=== PATIENT | female | born 2000 | race Hispanic/Latino ===

== ENCOUNTER 2019-12-10 19:50 | Emergency (ER) | payer OTHER ==
[~2019-12-10] VITALS: Ht 162.6 cm; Wt 106.1 kg
[2019-12-10] MEDS ORDERED: PREN29TA4 PO (20:00)
[2019-12-10] MEDS ORDERED: ONDANSETRON 4MG/2ML VIAL IV ONE (20:45)
[2019-12-10] MEDS ORDERED: NS 1,000 ML IV ONE (20:45)
[2019-12-10] MEDS ORDERED: GI COCKTAIL 50ML BTL(HYOSCYAMINE/MAALOX/LIDOCAINE VISCOUS)(1:3:1) PO ONE (20:45)
[2019-12-10 20:55] LABS: BASO % 0.2 % (0.0-1.0); EOS # 0.1 10^3/uL (0.0-0.5); EOS % 0.7 % (0.0-3.0); HEMATOCRIT 40.3 % (36.0-47.0); HEMOGLOBIN 12.9 g/dl (12.0-15.5); LYMPH # 1.8 10^3/uL (1.5-5.0); LYMPH % 15.1 % (24.0-44.0); MEAN CORPUSCULAR HEMOGLOBIN 25.9 pg (27.0-33.0); MEAN CORPUSCULAR VOLUME 80.9 fl (80.0-96.0); MONO # 0.7 10^3/uL (0.0-0.8); MONO % 5.4 % (0.0-5.0); NEUTROPHILS # 9.4 10^3/uL (1.5-8.5); NEUTROPHILS % 78.1 % (36.0-66.0); PLATELET COUNT, AUTOMATED 388 10^3/uL (150-450); RED BLOOD COUNT 4.98 10^6/uL (4.00-5.40); WHITE BLOOD COUNT 12.1 10^3/uL (4.0-10.0)
[2019-12-10 22:01] LABS: ALBUMIN 3.3 GM/DL (3.2-5.2); ALT/SGPT 42 U/L (12-78); BILIRUBIN,DIRECT < 0.1 MG/DL (0.0-0.2); BILIRUBIN,TOTAL 0.3 MG/DL (0.2-1.0); BLOOD UREA NITROGEN 8 MG/DL (7-18); CALCIUM LEVEL 9.1 MG/DL (8.5-10.1); CARBON DIOXIDE LEVEL 25 MEQ/L (21-32); CHLORIDE LEVEL 106 MEQ/L (98-107); CREATININE FOR GFR 0.51 MG/DL (0.55-1.30); GLUCOSE, FASTING 88 MG/DL (70-100); HCG, SERUM QUANTITATIVE 62887 MIU/ML; LIPASE 66 U/L (73-393); POTASSIUM SERUM 3.8 MEQ/L (3.5-5.1); SODIUM LEVEL 138 MEQ/L (136-145); TOTAL PROTEIN 7.1 GM/DL (6.4-8.2)
[2019-12-10] MEDS ORDERED: ONDA4TAB6 PO (22:36)
[2019-12-10 22:41] VITALS: BP 123/60
== END 2019-12-10 22:46 | disposition home or self-care (01) ==
LOC: M ED 19:50
DX: O21.9 Vomiting of pregnancy, unspecified (principal); Z3A.08 8 weeks gestation of pregnancy; Z79.899 Other long term (current) drug therapy
CPT/HCPCS: 80048; 80076; 83690; 84702; 85025; 96361; 96374; 99284; J2405

== ENCOUNTER 2020-06-11 23:56 | Outpatient (CLI) | payer OTHER ==
[~2020-06-11] VITALS: Ht 160 cm; Wt 112.0 kg
[~2020-06-11 23:56] MED LIST: ONDA4TAB6 PO; PREN29TA4 PO
[2020-06-12 00:18] VITALS: BP 107/63
[2020-06-12] MEDS ORDERED: FERR325T3 PO (00:27)
[2020-06-12 01:46] LABS: AMORPHOUS SEDIMENT SMALL (NEGATIVE); APPEARANCE, URINE CLOUDY (CLEAR); BACTERIA, URINE AUTO 1+ (NEGATIVE); BILIRUBIN, URINE AUTO NEGATIVE (NEGATIVE); BLOOD, URINE BLOOD NEGATIVE (NEGATIVE); COLOR, URINE AMBER (YELLOW); GLUCOSE, URINE (UA) AUTO NEGATIVE (NEGATIVE); KETONE, URINE AUTO NEGATIVE (NEGATIVE); LEUKOCYTE ESTERASE, URINE AUTO TRACE (NEGATIVE); MUCUS, URINE SMALL (NEGATIVE); NITRITE, URINE AUTO NEGATIVE (NEGATIVE); PROTEIN, URINE AUTO 1+ mg/dL (NEGATIVE); RBC, URINE AUTO 1 /HPF (0-3); SPECIFIC GRAVITY URINE AUTO 1.025 (1.002-1.035); SQUAMOUS EPITHELIAL CELL UR AU 2 /HPF (0-6); UROBILINOGEN, URINE AUTO 0.2 mg/dL (0.0-2.0); WBC, URINE AUTO 2 /HPF (0-3)
--- NOTE | 2020-06-12 02:39 | REPVR ---
PROCEDURE INFORMATION: Exam: US Doppler Velocimetry of the Umbilical Artery Exam date and time: 06/12/2020 2:00 AM Age: 19 years old Clinical indication: Pain indication: Lower abd pain; ; Additional info: Lower abd pain, bpp at 35.3 wks TECHNIQUE: Imaging protocol: US Doppler velocimetry of the umbilical artery with Doppler color and waveform analysis. COMPARISON: No relevant prior studies available. FINDINGS: Umbilical cord and insertion: There are 2 umbilical arteries and 1 umbilical vein. Umbilical artery Doppler: There are 2 umbilical arteries, which are patent. RI = 0.46, which is within normal limits. There is normal continuous forward flow in the umbilical artery during diastole and no absent or reversed end-diastolic flow is noted. Umbilical artery peak systolic velocity: 32.4 cm/s Umbilical artery systolic to diastolic ratio: Systolic to diastolic ratio is within normal limits for age and measures 1.85. IMPRESSION: Unremarkable umbilical Doppler for age. PROCEDURE INFORMATION: Exam: US Biophysical Profile Without Non-Stress Test Exam date and time: 06/12/2020 2:00 AM Age: 19 years old Clinical indication: Pain indication: Lower abd pain; ; Additional info: Lower abd pain, bpp at 35.3 wks TECHNIQUE: Imaging protocol: US biophysical profile without non-stress testing. COMPARISON: No relevant prior studies available. FINDINGS: Gestation: There is a single intrauterine . heart rate: 132 bpm Presentation: Cephalic. Placenta: Anterior. Grade 3. No placenta previa or placental abruption is visualized. Amniotic fluid index: 8.6 cm BIOPHYSICAL PROFILE: Breathin/2 Gross body movements: 2/2 tone: 2/2 Qualitative amniotic fluid: 2/2 Biophysical Profile Score: 8/8 MATERNAL ANATOMY: Cervix: The cervix is closed and measures 3.8 cm in length. No funneling of the cervix is noted. IMPRESSION: Biophysical profile score is 8 out of 8. Electronically signed by: Hayder Jerez On 06/12/2020 02:38:20 AM
[2020-06-12 03:09] LABS: AMPHETAMINES URINE REFLEX NEGATIVE (NEGATIVE); BARBITURATES URINE REFLEX NEGATIVE (NEGATIVE); BENZODIAZEPINES URINE REFLEX NEGATIVE (NEGATIVE); CANNABINOIDS URINE REFLEX NEGATIVE (NEGATIVE); COCAINE METABOLITE URINE REFLE NEGATIVE (NEGATIVE); METHADONE URINE REFLEX NEGATIVE (NEGATIVE); OPIATES URINE REFLEX NEGATIVE (NEGATIVE); PHENCYCLIDINE URINE REFLEX NEGATIVE (NEGATIVE)
[2020-06-12 04:00] VITALS: BP 121/61
--- NOTE | 2020-06-12 04:51 | IPNPDOC ---
Text Note Date of Service The patient was seen on 06/12/20. NOTE Item Value Date Time Urine Opiates Screen NEGATIVE 06/12/20117 Urine Methadone Screen NEGATIVE 06/12/20117 Urine Barbiturates Screen NEGATIVE 06/12/20117 Urine Phencyclidine Screen NEGATIVE 06/12/20117 Urine Amphetamines Screen NEGATIVE 06/12/20117 Urine Benzodiazepines Screen NEGATIVE 06/12/20117 Urine Cocaine Metabolite Screen NEGATIVE 06/12/20117 Urine Cannabinoids Screen NEGATIVE 06/12/20117 Item Value Date Time Urine Color AMELIE 06/12/20117 Urine pH 7.0 UNITS 06/12/20117 Urine Appearance CLOUDY H 06/12/20117 Urine Specific [place] 1.025 06/12/20117 Urine Glucose (Auto)(UA) NEGATIVE mg/dL 06/12/20117 Urine Protein 1+ mg/dL H 06/12/20117 Urine Ketones (Auto) NEGATIVE mg/dL 06/12/20117 Urine Blood NEGATIVE 06/12/20117 Urine Nitrite NEGATIVE 06/12/20117 Urine Bilirubin NEGATIVE 06/12/20117 Urine Urobilinogen 0.2 mg/dL 06/12/20117 Urine Leukocyte Esterase (Auto) TRACE H 06/12/20117 Urine WBC (Auto) 2 /HPF 06/12/20117 Urine RBC (Auto) 1 /HPF 06/12/20117 Urine Hyaline Casts (Auto) 0 /LPF 06/12/20117 Urine Bacteria (Auto) 1+ H 06/12/20117 Urine Squamous Epithelial Cells 2 /HPF 06/12/20117 Urine Amorphous Sediment (Auto) SMALL H 06/12/20117 Urine Mucus (Auto) SMALL 06/12/208 06/12/2020 0436 am 19 yo g1 Po LMP 10/08/19 EDC 07/14/20 at 35.4 weeks history lower abdominal pain after eating something not agreeing with her. RISK FACTORS GESTATIONAL ANEMIA VELAMENTOUS CORD GBS POSITIVE BMI 39.2 CT 2018 ELÍAS NEGATIVE PATIENT IN DISTRESS UNABLE TO LIE DOWN . CATEGORY 1 STRIP NO CONTRACTIONS MODERATE VARIABILITY NO DECELERATIONS . URINE 1025 PH 8 TRACE PROTEIN +1 BACTERIA TOX SCREEN NEGATIVE . US BPP 8/8 CERVIX CLOSED VERNON LOW NORMAL 8.5 CM PLAN DISCHARGE WITH PRECAUTIONS APPOINTMENT AT [facility] OB FRIDAY PROBABLY REPEAT VERNON 1 WEEK PLACENTA GRADE 3 .DISCHARGED UNDELIVERED [facility] NAME: Irlanda Stark DATE OF : 2000 BUSINESS NUMBER: [id number] AGE: 19 SEX: F REPORT #: [id number] ROOM: LDO TECHNOLOGIST: ZULEYMA DOCTOR: Chico Selby MD Ordered for Date&Time: 06/12/20139 cc: [~ rep ct ivnm] Service Date&Time: 06/12/20199 This report is in Signed status. Interpretation performed by [facility]. Thank you for having your radiology procedures performed at [facility] RADIOLOGY REPORT Date&Time printed: [~ rep prt dt last] [~ rep prt tm last] Page 3 of 3 [place] [id number] RADIOLOGY REPORT This report is in Signed status. Interpretation performed by [facility]. Thank you for having your radiology procedures performed at [facility] RADIOLOGY REPORT Date&Time printed: [~ rep prt dt last] [~ rep prt tm last] Page 1 of 3 NAME: Irlanda Stark DATE OF : 2000 BUSINESS NUMBER: [id number] AGE: 19 SEX: F REPORT #: [id number] [facility] TECHNOLOGIST: ZULEYMA DOCTOR: Chico Selby MD Ordered for Date&Time: 06/12/20139 cc: [~ rep ct ivnm] Service Date&Time: 06/12/20199 EXAMINATION REQUESTED: BPP W/O NON STRESS TEST REASON FOR PATIENT VISIT: CONTRACTIONS REASON FOR EXAMINATION: LOWER ABD PAIN,BPP AT 35.3 WKS PROCEDURE INFORMATION: Exam: US Doppler Velocimetry of the Umbilical Artery Exam date and time: 06/12/2020 2:00 AM Age: 19 years old Clinical indication: Pain indication: Lower abd pain; ; Additional info: Lower abd pain, bpp at 35.3 wks TECHNIQUE: Imaging protocol: US Doppler velocimetry of the umbilical artery with Doppler color and waveform analysis. COMPARISON: No relevant prior studies available. FINDINGS: Umbilical cord and insertion: There are 2 umbilical arteries and 1 umbilical vein. Umbilical artery Doppler: There are 2 umbilical arteries, which are patent. RI = 0.46, which is within normal limits. There is normal continuous forward flow in the umbilical artery during diastole and no absent or reversed end-diastolic flow is noted. Umbilical artery peak systolic velocity: 32.4 cm/s Umbilical artery systolic to diastolic ratio: Systolic to diastolic ratio is within normal limits for age and measures 1.85. IMPRESSION: Unremarkable umbilical Doppler for age. PROCEDURE INFORMATION: Exam: US Biophysical Profile Without Non-Stress Test Exam date and time: 06/12/2020 2:00 AM Age: 19 years old Clinical indication: Pain indication: Lower abd pain; ; Additional info: Lower abd pain, bpp at 35.3 wks TECHNIQUE: Imaging protocol: US biophysical profile without non-stress testing. COMPARISON: No relevant prior studies available. FINDINGS: Gestation: There is a single intrauterine . heart rate: 132 bpm Presentation: Cephalic. Placenta: Anterior. Grade 3. No placenta previa or placental abruption is visualized. Amniotic fluid index: 8.6 cm BIOPHYSICAL PROFILE: Breathin/2 Gross body movements: 2/2 tone: 2/2 Qualitative amniotic fluid: 2/2 Biophysical Profile Score: 8/8 MATERNAL ANATOMY: Cervix: The cervix is closed and measures 3.8 cm in length. No funneling of the cervix is noted. IMPRESSION: Biophysical profile score is 8 out of 8. Electronically signed by: Hayder Jerez On 06/12/2020 02:38:20 AM DD: HAYDER JEREZ MD 06/12/200 DT: DAVID 06/12/20237 DS: BENITO 06/12/20237 [~ rep ct labl] VS,Fishbone, I+O VS, Fishbone, I+O Vital Signs Date Time Temp Pulse Resp B/P (MAP) Pulse Ox O2 Delivery O2 Flow Rate FiO2 06/12/20 04:00 97.8 89 18 121/61 (81) Chico Selby MD Jun 12, 2020 04:45
== END 2020-06-12 04:50 | disposition home or self-care (01) ==
LOC: M LDO 23:56
PROVIDERS: ATTEND Obstetrics & Gynecology
DX: O26.893 Other specified pregnancy related conditions, third trimester (principal); R10.9 Unspecified abdominal pain; Z3A.35 35 weeks gestation of pregnancy
CPT/HCPCS: 59025; 76815; 76819; 76820; 80307; 81001; 87081; G0378; G0463

== ENCOUNTER 2020-06-30 09:45 | Inpatient (IN) | payer OTHER ==
[~2020-06-30] VITALS: Ht 162.6 cm; Wt 113.0 kg
[2020-06-30] VITALS (23 sets, daily range): BP systolic 96–143; BP diastolic 51–103
[~2020-06-30 09:45] MED LIST changes: +FERR325T3 PO
[2020-06-30] MEDS ORDERED: OXYTOCIN DRIP 30 UNITS in IV 1 EA IV PRN ×6 (09:55)
[2020-06-30] MEDS ORDERED: TRANEXAMIC ACID INJection 1,000 MG in NS 100 ML IV PRN (09:55)
[2020-06-30] MEDS ORDERED: METHYLERGONOVINE MALEATE 0.2 MG/ML VIAL (J2210) IM PRN (09:55)
[2020-06-30] MEDS ORDERED: LIDOCAINE 1% MDV 20ML VIAL INFIL PRN (09:55)
[2020-06-30] MEDS ORDERED: OXYTOCIN INJ 10 UNITS/ML VIAL (J2590) IV PRN (09:55)
[2020-06-30] MEDS ORDERED: PENICILLIN G POTASSIUM IV 5 MU in D5W MINI-BAG PLUS 100 ML IV STA (09:55)
[2020-06-30] MEDS ORDERED: miSOPROStol 50MCG 1/2 TABLET PO ONE (09:55)
[2020-06-30] MEDS ORDERED: CARBOPROST TROMETHAMINE 250 MCG/ML AMP IM PRN (09:55)
[2020-06-30] MEDS ORDERED: LACTATED RINGER'S 1000 ML IV STA (09:55)
[2020-06-30 10:46] LABS: HEMATOCRIT 37.2 % (36.0-47.0); HEMOGLOBIN 11.9 g/dl (12.0-15.5); MEAN CORPUSCULAR HEMOGLOBIN 26.2 pg (27.0-33.0); MEAN CORPUSCULAR VOLUME 81.8 fl (80.0-96.0); PLATELET COUNT, AUTOMATED 307 10^3/uL (150-450); RED BLOOD COUNT 4.55 10^6/uL (4.00-5.40); WHITE BLOOD COUNT 11.6 10^3/uL (4.0-10.0)
--- NOTE | 2020-06-30 11:18 | HPEPDOC ---
Obstetrical History & Physical General Date of Admission Jun 30, 2020 at 09:45 History of Present Illness 19 yo G1 @ 38+0 by LMP C/W [id number] US who is admitted for induction of labor for suspected IHCP and cat II tracing with occasional variable decels noted in clinic. she reports hand and feet itching worse at night. she denies any contractions or vaginal bleeding. she report regular movements. she has no other concerns. Information Provided By: Patient Care Care: Good Care Dating Final EDC: Jul 14, 2020 Final EDC by: LMP, 1st trimester (US) LMP: Oct 08, 2019 1st Trimester Date: Dec 20, 2019 Weeks + Days: 10 (10+4) Estimated Date of Confinement: Jul 14, 2020 EGA at Admission: 38 Antepartum Course Diagnos(e)s 1. Obesity 2. Varicella non immune- recommend vaccine 3. GBS positive 4. Gestational Anemia 5. Velamentous cord insertion 6. Suspected IHCP- LFTs pending Pre- weight (lbs.): 228 Admission Weight (lbs.): 249 Change in Weight (lbs.): 21 Past Medical History Past Obstetrical History : Past Obstetrical History: [employer] History: No pertinent history Past Medical History Medical History Obesity, Insomnia, hx of THC use- stoped in december 2019 Surgical History: Denies/None Social History Social history hx of THC use, stoped in december 2019. Denies E/T Family situation: Spouse/partner home Psychosocial History: No pertinent psych hx * Smoker: non-smoker Drugs: marijuana Abuse Violence Screening Have you been hit/kicked/slapp: No Have you been sexually assault: No Imunizations Tdap status: current Allergies Coded Allergies: No Known Allergies (Unverified , 06/12/20) Medications Scheduled Ferrous Sulfate (Ferrous Sulfate) 325 Mg Tablet.dr, 1 TAB PO BID Prenat 115/Iron Fum/Folic/Dss ( 19 Tablet) 1 Each Tablet, 1 TAB PO DAILY Physical Examination Physical Examination GENERAL: Alert and oriented times three. BREAST: . ABDOMEN: Gravid and non-tender to touch. FETUS: Is vertex (VTX) by sterile vaginal examination (SVE), EFW 3500g HEART RATE: Regular rate and rhythm. LUNGS: Clear to auscultation (CTA). EXTREMITIES: pedal edema SVE: , DLFB placed with 80/[address] Laboratory Data Urine Culture: No Growth, Other (GBS) Pertinent Laboratoy Data Blood Type: O+ RBC Antibody Screen: Negative HIV: Negative Hepatitis B: Negative Hepatitis C: Unknown Rapid Plasma Reagin: Nonreactive Rubella: Immune Varicella: Nonreactive Chlamydia/Gonorrhea: Negative Group B Streptococcus: Positive Quad Screen Test: Unknown Cystic Fibrosis: Unknown Glucose Tolerance Test: 109 Anatomy Ultrasound Ultrasound Date: Apr 20, 2020 Placenta Location: Anterior Normal Anatomy: Yes Other Ultrasounds Exam: US Doppler Velocimetry of the Umbilical Artery Exam date and time: 06/12/2020 2:00 AM Age: 19 years old Clinical indication: Pain indication: Lower abd pain; ; Additional info: Lower abd pain, bpp at 35.3 wks TECHNIQUE: Imaging protocol: US Doppler velocimetry of the umbilical artery with Doppler color and waveform analysis. COMPARISON: No relevant prior studies available. FINDINGS: Umbilical cord and insertion: There are 2 umbilical arteries and 1 umbilical vein. Umbilical artery Doppler: There are 2 umbilical arteries, which are patent. RI = 0.46, which is within normal limits. There is normal continuous forward flow in the umbilical artery during diastole and no absent or reversed end-diastolic flow is noted. Umbilical artery peak systolic velocity: 32.4 cm/s Umbilical artery systolic to diastolic ratio: Systolic to diastolic ratio is within normal limits for age and measures 1.85. IMPRESSION: Unremarkable umbilical Doppler for age. PROCEDURE INFORMATION: Exam: US Biophysical Profile Without Non-Stress Test Exam date and time: 06/12/2020 2:00 AM Age: 19 years old Clinical indication: Pain indication: Lower abd pain; ; Additional info: Lower abd pain, bpp at 35.3 wks TECHNIQUE: Imaging protocol: US biophysical profile without non-stress testing. COMPARISON: No relevant prior studies available. FINDINGS: Gestation: There is a single intrauterine . heart rate: 132 bpm Presentation: Cephalic. Placenta: Anterior. Grade 3. No placenta previa or placental abruption is visualized. Amniotic fluid index: 8.6 cm BIOPHYSICAL PROFILE: Breathin/2 Gross body movements: 2/2 tone: 2/2 Qualitative amniotic fluid: 2/2 Biophysical Profile Score: 8/8 MATERNAL ANATOMY: Cervix: The cervix is closed and measures 3.8 cm in length. No funneling of the cervix is noted. IMPRESSION: Biophysical profile score is 8 out of 8. Electronically signed by: Hayder Jerez On 06/12/2020 02:38:20 AM Steroid Therapy Steroid Therapy: No Vaginal Examination Dilation: 1cm Effacement: 30% Station: -3 Cervical Consistency: Firm Cervical Position: Middle Presentation: Cephalic presentation Assessment Heart Rate (FHR): 140 Variability: Moderate Accelerations: Positive Decelerations: None Tocometer Contractions: No Multi-drug resistant Organism: No history of MDRO Assessment/Plan Assessment 19 yo G1 @ 38+0 by LMP C/W 10W4D US who is admitted for induction of labor for suspected IHCP and cat II tracing with occasional variable decels noted in clinic. GBS positive, RH positive, Cat I tracing on admission. EFW 3500g. Single elevated BP on admission. 1. Obesity 2. Varicella non immune- recommend vaccine 3. GBS positive 4. Gestational Anemia 5. Velamentous cord insertion 6. Suspected IHCP- LFTs pending Plan Admit and orient. [place] and consent. Diet: regular while on cervical ripening Group B Streptococcus (GBS) positive- start Penicillin treatment Labs and intravenous (IV) per unit protocol. Counseled on Pitocin and induction of labor (IOL). Lactated Ringers (LR): Bolus 1000 mL, then at 125 mL/hr. Anticipate normal spontaneous delivery (). C-S as appropriate. Labor and Delivery Counseling We will deliver your baby through the vagina with possible assistance of forceps or vacuum device if needed for maternal or indications. Forceps and vacuum are devices that can assist with vaginal delivery when normal pushing efforts cannot achieve delivery on their own or when delivery is needed in an emergency for baby's well-being. Medications may be required to induce or augment (help) your labor in order to achieve a vaginal delivery. An episiotomy may be required to help your baby to delivery vaginally. You may also require repair of any lac erations or tears of your vagina or vulva that are caused by delivery. In some cases, emergencies can occur that require an emergency section delivery so quickly that there may not be enough time to stop and complete consent forms for section. Understand that if this occurs, your providers will discuss the need for a section with you before they proceed with surgery. section is the delivery of your baby through an incision in your abdomen. In some situations, section may be safer to mom and baby than continuing labor and is only performed when clinically indicated. Risks of vaginal delivery include but are not limited to: Bleeding, infection, injury to the vagina, pelvic structures, injury to baby, damage to the uterus, reactions to anesthesia, uterine rupture, risk of hysterectomy for life threatening bleeding, or . Medications used to induce or augment labor may increase your risk for infection, uterine tachysystole, uterine rupture, heart rate abnormalities, need for emergency delivery or possible hysterectomy, and hemorrhage. Additional risks for use of forceps and vacuum include: increased risk of perineal and vaginal lacerations, risk of urinary or bowel incontinence, increased risk of injury to baby with bruising, scratches, hematomas on the head, or intracranial bleeding. AJ THOMPSON MD Jun 30, 2020 10:29
[2020-06-30 11:49] LABS: CREATININE FOR GFR 0.34 MG/DL (0.55-1.30)
[2020-06-30 11:50] LABS: ALT/SGPT 19 U/L (12-78); BILIRUBIN,TOTAL 0.4 MG/DL (0.2-1.0); LDH LACTATE DEHYDROGENASE 305 U/L (84-246); URIC ACID 4.6 MG/DL (2.6-6.0)
[2020-06-30] MEDS: LR 1,000 ML IV SCH ×2 (12:45→18:12)
[2020-06-30] MEDS: PENICILLIN G POTASSIUM IV 2.5 MU in IV 1 EA IV SCH ×2 (17:19→21:11)
[2020-06-30] MEDS ORDERED: LR 1,000 ML IV SCH (18:32)
[2020-06-30] MEDS ORDERED: OXYTOCIN DRIP 30 UNITS in IV 1 EA IV SCH (18:35)
--- NOTE | 2020-06-30 18:38 | IPNPDOC ---
Obstetrical Progress Note Date of Service Jun 30, 2020 Subjective Routine assessment. No acute concerns. Objective Vital Signs Date Time Temp Pulse Resp B/P (MAP) Pulse Ox O2 Delivery O2 Flow Rate FiO2 06/30/20 15:55 85 18 134/82 (99) 06/30/20 10:11 98.0 Assessment Heart Rate (FHR): 140 Variability: Moderate Accelerations: Positive Decelerations: Late Heart Rate Tracing: Category II Tocometer Contractions: Yes Frequency: irregular Assessment and Plan Anticipate: Vaginal Delivery Additional Comments Patient's DLFB came out at 1710. Her last dose of cytotec was at 1245. She has overall mostly had a CAT I tracing, but has had two late decels. Her variability has remained moderate, this is overall reassuring. The patient is going to eat dinner and shower then we will start pitocin. She was requesting an epidural, I will check her cervix after she gets the epidural. Plan for AROM when appropriate. KIRSTIN SALDIVAR DO Jun 30, 2020 18:38
[2020-06-30 20:20] LABS: CREATININE,RANDOM URINE 52.1 MG/DL
--- NOTE | 2020-06-30 22:32 | IPNPDOC ---
Obstetrical Progress Note Date of Service Jun 30, 2020 Subjective To room for routine assessment. Patient has no complaints. Objective Vital Signs Date Time Temp Pulse Resp B/P (MAP) Pulse Ox O2 Delivery O2 Flow Rate FiO2 06/30/20 21:50 97 18 125/71 (89) 06/30/20 10:11 98.0 Assessment Heart Rate (FHR): 140 Variability: Moderate Accelerations: Positive Decelerations: None Heart Rate Tracing: Category I Tocometer Contractions: Yes Frequency: regular Sterile Vaginal Examination Dilation: 5 cm Effacement (%): 70% Station: -2 Cervical Consistency: Soft Cervical Position: Anterior Postion/Presentation: Cephalic presentation (by exam) Assessment and Plan Anticipate: Vaginal Delivery Additional Comments To room for routine assessment. CAT I tracing, reactive. She is now meeting criteria for GHTN for intermittent mild range BPs. She denied si/sx of pre-e and her tox labs were normal. SVE was 5/75/-2 and there was a BBOW that spontaneously ruptured upon SVE, clear. Will continue IOL with pit and reassess as clinically indicated. KIRSTIN SALDIVAR DO Jun 30, 2020 22:32
[2020-06-30] MEDS ORDERED: FENTANYL 2MCG/ML ROPIVACAINE 0.2% IN 0.9% NACL 100ML IVBAG As Ordered ONE (22:42)
[2020-07-01] VITALS (30 sets, daily range): BP systolic 96–123; BP diastolic 51–86
[2020-07-01] MEDS ORDERED: ONDANSETRON 4MG/2ML VIAL IV PRN
[2020-07-01] MEDS ORDERED: ePHEDrine SULFATE 25 MG/5 ML(5MG/ML) SYRINGE IV PRN
[2020-07-01] MEDS ORDERED: REFRIGERATOR IV KEYS XX PRN
[2020-07-01] MEDS ORDERED: EPIDURAL/PCA KEYS XX PRN
[2020-07-01] MEDS ORDERED: LACTATED RINGER'S 1000 ML IV PRN
[2020-07-01] MEDS ORDERED: diphenhydrAMINE 50MG/ML VIAL (J1200) IV PRN
[2020-07-01] MEDS ORDERED: EPIDURAL COMMENT XX SCH
[2020-07-01] MEDS ORDERED: NALOXONE INJ 0.4MG/1ML VIAL (J2310 PER 1MG) IV PRN
[2020-07-01] MEDS ORDERED: FENTANYL/ROPIVACAINE/NACL BAG 100 ML EPIDURAL SCH
[2020-07-01] MEDS: LR 1,000 ML IV SCH (00:33)
[2020-07-01] MEDS: PENICILLIN G POTASSIUM IV 2.5 MU in IV 1 EA IV SCH ×2 (01:19→04:30)
--- NOTE | 2020-07-01 04:37 | IPNPDOC ---
Obstetrical Progress Note Date of Service Jul 01, 2020 Subjective To room for assessment of cervical change. Objective Vital Signs Date Time Temp Pulse Resp B/P (MAP) Pulse Ox O2 Delivery O2 Flow Rate FiO2 06/30/20 21:50 97 18 125/71 (89) 06/30/20 10:11 98.0 Assessment Heart Rate (FHR): 130 Variability: Moderate Accelerations: Positive Decelerations: Early, Late, Variable Heart Rate Tracing: Category II Tocometer Contractions: Yes Frequency: regular Sterile Vaginal Examination Dilation: 9 cm Effacement (%): 90% Station: 0 Assessment and Plan Status: Reassuring Additional Comments To room for assessment of report of cervical change by RN. RICK AL/90/0. A thick lip is appreciated on the right side with some swelling appreciated. Attempt made to reduce unsuccessful. The baby has had early decelerations as well as occ asional variable and late decelerations, but there is good return to baseline and moderate variability and accelerations. As patient is progressing well will continue to closely monitor. KIRSTIN SALDIVAR DO Jul 01, 2020 04:37
[2020-07-01] MEDS ORDERED: ceFAZolin 2 GM/D5W 50 ML IV BAG (J0690 PER 500MG) As Ordered ONE (05:56)
[2020-07-01] MEDS ORDERED: ceFAZolin SOD 2 GM in IV 1 EA IV ONE (06:00)
[2020-07-01 06:17] LABS: CORD GAS ABE A -3.9; CORD GAS HCO3 A 23.7 MEQ/L; CORD GAS O2 SAT A 66.1 %; CORD GAS PH A 7.268 UNITS; CORD GAS PO2 A 29.2 mmHg; CORD GAS SBC A 20.5 MEQ/L; CORD GAS TCO2 A 25.3 MEQ/L
[2020-07-01 06:20] LABS: CORD GAS ABE V -1.7; CORD GAS O2 SAT V 62.7 %; CORD GAS PCO2 V 43.7 mmHg; CORD GAS PH V 7.357 UNITS; CORD GAS PO2 V 24.7 mmHg; CORD GAS SBC V 22.2 MEQ/L; CORD GAS TCO2 V 25.3 MEQ/L
--- NOTE | 2020-07-01 06:39 | DNPDOC ---
[facility] Delivery Note Delivery Note DATE OF DELIVERY: 07/01/20 PREDELIVERY DIAGNOSIS: 38+1/7 weeks' gestation and labor, suspected IHCP, GBS positive, obesity, velamentous cord insertion POST DELIVERY DIAGNOSIS: delivered PROCEDURE: Spontaneous vaginal delivery, manual placental extraction, repair of bilateral labial lacerations, repair of first degree midline laceration SASH FINISHER: Dr. Jose Saldivar DO ANESTHESIA: epidural ESTIMATED BLOOD LOSS: 150 mL. FINDINGS: 3100g, Score 8/9, nuchal cord times 0. DELIVERY SUMMARY: Ms. Stark is a 19yo who was induced at 38+0 for suspected ICHP with a CAT II FHR tracing. She was induced with a castellanos balloon and cytotec initially. Pitocin was started and she did require some pitocin decreases for CAT II heart rate. With the aid of Pitocin she progressed to C/C/+3 and with good maternal effort delivered the baby in the INGRID position followed by the corpus without difficulty. The cord clamping was not delayed as initially there was no cry, but good tone. Shortly thereafter the baby had spontaneous cry. Cord gasses and blood were obtained. The placenta was delivered with sonya downward traction but due to the vilamentous cord insertion the cord began to shear and a partial manual extraction was performed. A sweep revealed retained placental membranes and a cody[place]on. 2g of ancef IV were administered prophylactically for the sweep. A transabdominal U/S was performed after and the EMS was thin and without color flow. The right labia had a laceration that extended from the clitoris to the urethral meatus. This was repaired with 3-0 vicryl in a running fashion with the aid of a castellanos to ensure no urethral involvement. Urine 100cc. The left labia had a small laceration and a single figure of 8 with 3-0 vicryl was used to approximated. There was a first degree midline laceration that was repaired with 2-0 vicryl in the usual fashion. The uterus remained firm and bleeding scant. The surgical sites were hemostatic. The sponge, lap, and needle counts were correct. JOSE SALDIVAR DO Jul 01, 2020 06:39
[2020-07-01] MEDS ORDERED: OXYTOCIN DRIP 30 UNITS in IV 1 EA IV SCH (06:41)
[2020-07-01] MEDS ORDERED: ACETAMINOPHEN TAB 650MG DOSE (2X325MG) PO PRN (06:45)
[2020-07-01] MEDS ORDERED: DOCUSATE SODIUM 100MG CAPSULE PO PRN (06:45)
[2020-07-01] MEDS ORDERED: ACETAMINOPHEN 500 MG TAB PO PRN (06:45)
[2020-07-01] MEDS ORDERED: DIBUCAINE 1% OINTMENT 30GM TOP PRN (06:45)
[2020-07-01] MEDS ORDERED: IBUPROFEN 600MG TAB PO PRN (06:45)
[2020-07-01] MEDS: IBUPROFEN 800 MG TAB PO PRN (07:43)
[2020-07-01] MEDS: PRENATAL VITAMINS CHEWABLE TABLET PO SCH (09:34)
--- NOTE | 2020-07-02 04:51 | IPNPDOC ---
Progress Note Date of Service: Jul 02, 2020 Day#: 1 Progress Note SUBJECT: Irlanda is a 19yo s/p after IOL for suspected IHCP and cat II FHRT, doing well day # 1. She has been ambulating, voiding spontaneously without issue and tolerating regular diet. Breast feeding without issue. Reports lochia is decreasing. Reports pain controlled. OBJECTIVE: VITAL SIGNS: Within normal limits, afebrile. Alert and oriented times three. Abdomen: Fundus firm at U-2. Soft, NTTP. ASSESSMENT: Irlanda is a 19yo s/p after IOL for suspected IHCP and cat II FHRT, doing well day # 1. Vitals within normal limits, afebrile, hemodynamically stable with no evidence of infection. PLAN: 1. Discharge to home tomorrow 2. Tylenol and Motrin for pain. 3. Encourage breast feeding with consult PRN. 4. Encourage regular diet and ambulation OOB as tolerated. 5. Routine PP visit in 6 weeks in clinic. 6. Discussed return precautions at length. VS, I&O, 24H, [facility] Vital Signs/I&O Vital Signs Date Time Temp Pulse Resp B/P (MAP) Pulse Ox O2 Delivery O2 Flow Rate FiO2 07/01/20 18:00 98.0 96 16 120/66 (84) 97 Room Air I&O- Last 24 Hours up to 6 AM 07/02/20 05:59 Intake Total 1621.1 ml Output Total 1450 ml Balance 171.1 ml Laboratory Data 24H LABS Laboratory Tests 2 07/01/20 06:01: Cord Arterial Blood pH 7.268, Cord Arterial Blood PCO2 53.0, Cord Arterial Blood PO2 29.2, Cord Arterial Blood HCO3 23.7, Cord Arterial Blood Total CO2 25.3, Cord Arterial Blood Base Excess -3.9, Cord Arterial Base Excess (Standard 20.5, Cord Arterial Bld Oxygen Saturation 66.1, Cord Venous Blood pH 7.357, Cord Venous Blood PCO2 43.7, Cord Venous Blood PO2 24.7, Cord Venous Blood HCO3 24.0, Cord Venous Blood Total CO2 25.3, Cord Venous Base Excess (Actual) -1.7, Cord Venous Base Excess (Standard) 22.2, Cord Venous Blood Oxygen Saturation 62.7 GIL TRISTAN DO Jul 02, 2020 04:51
[2020-07-02 06:32] VITALS: BP 122/65
[2020-07-02 07:41] VITALS: BP 111/58
[2020-07-02] MEDS: PRENATAL VITAMINS CHEWABLE TABLET PO SCH (09:12)
[2020-07-02] MEDS: IBUPROFEN 800 MG TAB PO PRN ×2 (09:13→19:31)
[2020-07-02 18:00] VITALS: BP 133/59
--- NOTE | 2020-07-03 04:37 | IPNPDOC ---
Progress Note Date of Service: Jul 03, 2020 Day#: 2 Progress Note SUBJECT: Irlanda is a 19yo s/p after IOL for suspected IHCP and cat II FHRT, doing well day # 2. She has been ambulating, voiding spontaneously without issue and tolerating regular diet. Breast feeding without issue. Reports lochia is decreasing. Reports pain controlled. OBJECTIVE: VITAL SIGNS: Within normal limits, afebrile. Alert and oriented times three. Abdomen: Fundus firm at U-2. Soft, NTTP. ASSESSMENT: Irlanda is a 19yo s/p after IOL for suspected IHCP and cat II FHRT, doing well day # 2. Vitals within normal limits, afebrile, hemodynamically stable with no evidence of infection. PLAN: 1. Discharge to home today 2. Tylenol and Motrin for pain. 3. Encourage breast feeding with consult PRN. 4. Encourage regular diet and ambulation OOB as tolerated. 5. Routine PP visit in 6 weeks in clinic. 6. Discussed return precautions at length. VS, I&O, 24H, Fishbone Vital Signs/I&O Vital Signs Date Time Temp Pulse Resp B/P (MAP) Pulse Ox O2 Delivery O2 Flow Rate FiO2 07/02/20 18:00 98.0 95 17 133/59 (83) 97 Room Air I&O- Last 24 Hours up to 6 AM 07/03/20 06:00 Intake Total 400 ml Balance 400 ml GIL TRISTAN DO Jul 03, 2020 04:37
[2020-07-03 06:00] VITALS: BP 128/68
[2020-07-03] MEDS: PRENATAL VITAMINS CHEWABLE TABLET PO SCH (07:36)
== END 2020-07-03 13:47 | disposition home or self-care (01) | DRG 806 ==
LOC: M LDI 09:45 → M OBS 07-01 12:15
PROVIDERS: ADMIT Obstetrics & Gynecology; ATTEND Obstetrics & Gynecology
PROC: 10D17Z9 Manual Extraction of Products of Conception, Retained, Via Natural or Artificial Opening (ICD-10-PCS; principal; 2020-07-01)
PROC: 10E0XZZ Delivery of Products of Conception, External Approach (ICD-10-PCS; 2020-07-01)
PROC: 0HQ9XZZ Repair Perineum Skin, External Approach (ICD-10-PCS; 2020-07-01)
PROC: 3E033VJ Introduction of Other Hormone into Peripheral Vein, Percutaneous Approach (ICD-10-PCS; 2020-07-01)
DX: O99.02 Anemia complicating childbirth (principal); Z37.0 Single live birth; D69.0 Allergic purpura; O99.12 Other diseases of the blood and blood-forming organs and certain disorders involving the immune mechanism complicating childbirth; Z3A.38 38 weeks gestation of pregnancy; D64.9 Anemia, unspecified; O99.824 Streptococcus B carrier state complicating childbirth; O99.214 Obesity complicating childbirth; O76 Abnormality in fetal heart rate and rhythm complicating labor and delivery; O70.0 First degree perineal laceration during delivery; O69.89X0 Labor and delivery complicated by other cord complications, not applicable or unspecified; O73.1 Retained portions of placenta and membranes, without hemorrhage

== ENCOUNTER → 2023-12-12 | Outpatient (REF) | payer OTHER ==
[~2023-12-12] MED LIST changes: +ONDA-282 PO; -ONDA4TAB6 PO
== END ==
LOC: M LAB REF 14:59
PROVIDERS: ATTEND Family Medicine
DX: N76.0 Acute vaginitis (principal)

== ENCOUNTER → 2024-03-22 | Outpatient (CLI) | payer OTHER | LOC: M RAD 16:04 | PROVIDERS: ATTEND Family Medicine | DX: M65.4 Radial styloid tenosynovitis [de Quervain] (principal) ==

== ENCOUNTER 2024-10-03 06:36 | Inpatient (IN) | payer OTHER ==
[~2024-10-03] VITALS: Ht 162.6 cm; Wt 76.7 kg
[2024-10-03] MEDS: KETOROLAC 30 MG/ML 1 ML VIAL IV ONE ×2 (07:44→11:20)
[2024-10-03 08:03] LABS: BASO # 0.1 10^3/uL (0.0-0.2); BASO % 1.0 % (0.0-1.0); EOS # 0.1 10^3/uL (0.0-0.5); EOS % 1.4 % (0.0-3.0); LYMPH # 0.9 10^3/uL (1.5-5.0); LYMPH % 15.7 % (24.0-44.0); MONO # 0.3 10^3/uL (0.0-0.8); MONO % 5.7 % (2.0-8.0); NEUTROPHILS # 4.5 10^3/uL (1.5-8.5); NEUTROPHILS % 76.0 % (36.0-66.0); PLATELET COUNT, AUTOMATED 296 10^3/uL (150-450)
[2024-10-03 08:39] LABS: ALT/SGPT 797 U/L (7.0-40); AST/SGOT 411 U/L (<34); CALCIUM LEVEL 9.6 MG/DL (8.5-10.1); CARBON DIOXIDE LEVEL 27 MMOL/L (20-31); CHLORIDE LEVEL 103 MMOL/L (98-107); CREATININE FOR GFR 0.61 MG/DL (0.55-1.30); GLOMERULAR FILTRATION RATE > 90.0 (>60); POTASSIUM SERUM 3.1 MMOL/L (3.5-5.1); SODIUM LEVEL 140 MMOL/L (136-145)
[2024-10-03] MEDS: POTASSIUM CHLORIDE 10MEQ SR TABLET PO ONE (11:20)
[2024-10-03] MEDS: MORPHINE 4 MG/ML 1 ML VIAL IV PRN (11:46)
[2024-10-03] MEDS: NS (Normal Saline) 0.9% 1,000 ML IV SCH (11:46)
[2024-10-03] MEDS ORDERED: OXYC1TAB23 PO (13:35)
[2024-10-03] MEDS ORDERED: ADDE10TA PO (13:35)
[2024-10-03] MEDS ORDERED: PROBCAP14 PO (13:35)
[2024-10-03] MEDS ORDERED: OMEP40CA5 PO (13:35)
[2024-10-03] MEDS ORDERED: DUPI300P SUBQ (13:35)
[2024-10-03] MEDS ORDERED: LEVOTAB10 PO (13:35)
[2024-10-03] MEDS ORDERED: AMPH1CAP5 PO (13:35)
[2024-10-03] MEDS ORDERED: HOME MED LIST COMPLETE! XX SCH (13:40)
[2024-10-03] MEDS ORDERED: MORPHINE 4 MG/ML 1 ML VIAL IV PRN (14:50)
[2024-10-03] MEDS ORDERED: ONDANSETRON 4MG 2ML VIAL IV PRN (14:50)
[2024-10-03] MEDS: PIPERACILLIN/TAZOBACTAM SOD 3.375 GM in DEXTROSE 5% (D5W) ADV/MINI-BAG 50 ML IV SCH (17:31)
[2024-10-03] MEDS: PANTOPRAZOLE 40MG VIAL IV SCH (17:31)
[2024-10-03 17:50] VITALS: BP 121/56; TEMP 97.8; O2SAT 98
[2024-10-03 20:00] VITALS: BP 114/62; TEMP 97.4; O2SAT 99
[2024-10-03] MEDS: KETOROLAC 30 MG/ML 1 ML VIAL IV PRN (20:09)
[2024-10-04] VITALS: BP 101/57; TEMP 97.2; O2SAT 100
[2024-10-04 05:00] VITALS: BP 109/63; TEMP 97.8; O2SAT 98
[2024-10-04 06:57] LABS: BASO # 0.1 10^3/uL (0.0-0.2); BASO % 1.0 % (0.0-1.0); EOS # 0.1 10^3/uL (0.0-0.5); EOS % 1.5 % (0.0-3.0); LYMPH # 1.0 10^3/uL (1.5-5.0); LYMPH % 15.4 % (24.0-44.0); MONO # 0.4 10^3/uL (0.0-0.8); MONO % 6.4 % (2.0-8.0); NEUTROPHILS # 5.1 10^3/uL (1.5-8.5); NEUTROPHILS % 75.4 % (36.0-66.0); PLATELET COUNT, AUTOMATED 230 10^3/uL (150-450)
[2024-10-04 07:38] LABS: ALT/SGPT 568 U/L (7.0-40); AST/SGOT 183 U/L (<34); CALCIUM LEVEL 8.7 MG/DL (8.5-10.1); CARBON DIOXIDE LEVEL 23 MMOL/L (20-31); CHLORIDE LEVEL 106 MMOL/L (98-107); CREATININE FOR GFR 0.57 MG/DL (0.55-1.30); GLOMERULAR FILTRATION RATE > 90.0 (>60); POTASSIUM SERUM 3.6 MMOL/L (3.5-5.1); SODIUM LEVEL 142 MMOL/L (136-145)
[2024-10-04 11:39] VITALS: BP 107/65; TEMP 98; O2SAT 98
[2024-10-04 20:00] VITALS: BP 118/63; TEMP 99; O2SAT 98
[2024-10-05] VITALS: BP 108/58; TEMP 98.1; O2SAT 97
[2024-10-05 04:00] VITALS: BP 118/60; TEMP 98; O2SAT 98
[2024-10-05 07:08] LABS: BASO # 0.0 10^3/uL (0.0-0.2); BASO % 0.6 % (0.0-1.0); EOS # 0.2 10^3/uL (0.0-0.5); EOS % 2.3 % (0.0-3.0); LYMPH # 0.9 10^3/uL (1.5-5.0); LYMPH % 13.2 % (24.0-44.0); MONO # 0.5 10^3/uL (0.0-0.8); MONO % 8.1 % (2.0-8.0); NEUTROPHILS # 4.9 10^3/uL (1.5-8.5); NEUTROPHILS % 75.5 % (36.0-66.0); PLATELET COUNT, AUTOMATED 262 10^3/uL (150-450)
[2024-10-05 07:37] LABS: ALT/SGPT 462 U/L (7.0-40); AST/SGOT 150 U/L (<34); CALCIUM LEVEL 8.1 MG/DL (8.5-10.1); CARBON DIOXIDE LEVEL 26 MMOL/L (20-31); CHLORIDE LEVEL 106 MMOL/L (98-107); CREATININE FOR GFR 0.54 MG/DL (0.55-1.30); GLOMERULAR FILTRATION RATE > 90.0 (>60); POTASSIUM SERUM 3.6 MMOL/L (3.5-5.1); SODIUM LEVEL 141 MMOL/L (136-145)
[2024-10-05 11:59] VITALS: BP 100/68; TEMP 97.3; O2SAT 96
[2024-10-05] MEDS: NS (Normal Saline) 0.9% 1,000 ML IV SCH (15:39)
[2024-10-05 20:00] VITALS: BP 102/58; TEMP 97.8; O2SAT 100
[2024-10-05] MEDS ORDERED: KETOROLAC 30 MG/ML 1 ML VIAL IV PRN (20:50)
[2024-10-06] VITALS: BP 96/54; TEMP 97.2; O2SAT 99
[2024-10-06 04:00] VITALS: BP 105/55; TEMP 97.6; O2SAT 99
[2024-10-06 07:00] LABS: BASO # 0.0 10^3/uL (0.0-0.2); BASO % 1.0 % (0.0-1.0); EOS # 0.2 10^3/uL (0.0-0.5); EOS % 3.8 % (0.0-3.0); LYMPH # 1.1 10^3/uL (1.5-5.0); LYMPH % 26.8 % (24.0-44.0); MONO # 0.3 10^3/uL (0.0-0.8); MONO % 6.9 % (2.0-8.0); NEUTROPHILS # 2.6 10^3/uL (1.5-8.5); NEUTROPHILS % 61.3 % (36.0-66.0); PLATELET COUNT, AUTOMATED 225 10^3/uL (150-450)
[2024-10-06 07:27] LABS: ALT/SGPT 357 U/L (7.0-40); AST/SGOT 77 U/L (<34); CALCIUM LEVEL 8.7 MG/DL (8.5-10.1); CARBON DIOXIDE LEVEL 26 MMOL/L (20-31); CHLORIDE LEVEL 108 MMOL/L (98-107); CREATININE FOR GFR 0.58 MG/DL (0.55-1.30); GLOMERULAR FILTRATION RATE > 90.0 (>60); POTASSIUM SERUM 3.5 MMOL/L (3.5-5.1); SODIUM LEVEL 145 MMOL/L (136-145)
[2024-10-06 12:30] VITALS: BP 117/68; TEMP 97.1; O2SAT 99
[2024-10-06] MEDS ORDERED: MIDAZOLAM INJ 2 MG/2 ML VIAL As Ordered ONE (16:34)
[2024-10-06] MEDS ORDERED: ONDANSETRON 4MG 2ML VIAL As Ordered ONE (16:34)
[2024-10-06] MEDS ORDERED: dexAMETHasone 4 MG/ML 1 ML VIAL As Ordered ONE (16:34)
[2024-10-06] MEDS ORDERED: LIDOCAINE 2% 100 MG/5 ML SDV (FOR ANES.) As Ordered ONE (16:34)
[2024-10-06] MEDS ORDERED: SUGAMMADEX SODIUM 500 MG/5 ML VIAL As Ordered ONE (16:34)
[2024-10-06] MEDS ORDERED: ROCURONIUM BROMIDE 50MG/5ML VIAL As Ordered ONE (16:34)
[2024-10-06] MEDS: INDOCYANINE GREEN 25 MG VIAL As Ordered ONE (19:00)
[2024-10-06] MEDS ORDERED: KETOROLAC 30 MG/ML 1 ML VIAL As Ordered ONE (19:03)
[2024-10-06] MEDS ORDERED: GLYCOPYRROLATE INJ 0.2 MG/ML 2 ML VIAL As Ordered ONE (19:08)
[2024-10-06] MEDS ORDERED: ACETAMINOPHEN 1000MG/100ML IV BAG As Ordered ONE (19:25)
[2024-10-06] MEDS: ZOSYN 3.375GM VIAL As Ordered ONE (19:31)
[2024-10-06] MEDS ORDERED: dexmedeTOMIDine (4 MCG/ML) 200 MCG/50 ML BTL As Ordered ONE (19:33)
[2024-10-06] MEDS ORDERED: ONDANSETRON 4MG 2ML VIAL IV PRN (20:35)
[2024-10-06] MEDS ORDERED: HYDROMORPHONE HCL 0.5 MG/0.5 ML SYRINGE IV PRN (20:35)
[2024-10-06] MEDS ORDERED: LACRILUBE (AKWA TEARS) OPHTH OINT 3.5 GM As Ordered ONE (20:38)
[2024-10-06 21:45] VITALS: BP 120/78; TEMP 97; O2SAT 96
[2024-10-06 22:15] VITALS: BP 127/86; TEMP 97.2; O2SAT 99
[2024-10-06 22:45] VITALS: BP 121/74; TEMP 97.6; O2SAT 98
[2024-10-07] VITALS (7 sets, daily range): BP systolic 97–114; BP diastolic 56–69; TEMP 97.3–98; O2SAT 97–99
[2024-10-07] MEDS: traMADol 50 MG TAB PO PRN (00:05)
[2024-10-07] MEDS ORDERED: TRAM50TA2 PO ×2 (06:49→06:51)
[2024-10-07] MEDS ORDERED: AMOX875T2 PO (06:49)
[2024-10-07] MEDS ORDERED: PROB250C PO (06:49)
[2024-10-07 06:59] LABS: BASO # 0.0 10^3/uL (0.0-0.2); BASO % 0.3 % (0.0-1.0); EOS # 0.0 10^3/uL (0.0-0.5); EOS % 0.1 % (0.0-3.0); LYMPH # 1.0 10^3/uL (1.5-5.0); LYMPH % 10.9 % (24.0-44.0); MONO # 0.3 10^3/uL (0.0-0.8); MONO % 3.6 % (2.0-8.0); NEUTROPHILS # 7.5 10^3/uL (1.5-8.5); NEUTROPHILS % 84.5 % (36.0-66.0); PLATELET COUNT, AUTOMATED 297 10^3/uL (150-450)
[2024-10-07 07:24] LABS: ALT/SGPT 322 U/L (7.0-40); AST/SGOT 65 U/L (<34); CALCIUM LEVEL 8.6 MG/DL (8.5-10.1); CARBON DIOXIDE LEVEL 26 MMOL/L (20-31); CHLORIDE LEVEL 104 MMOL/L (98-107); CREATININE FOR GFR 0.55 MG/DL (0.55-1.30); GLOMERULAR FILTRATION RATE > 90.0 (>60); POTASSIUM SERUM 3.9 MMOL/L (3.5-5.1); SODIUM LEVEL 142 MMOL/L (136-145)
[2024-10-07] MEDS ORDERED: COLA100C5 PO (12:14)
[2024-10-07] MEDS ORDERED: SENN-186 PO (12:15)
[2024-10-07] MEDS ORDERED: IBUP-1114 PO (12:18)
== END 2024-10-07 16:33 | disposition home or self-care (01) | DRG 419 ==
LOC: M ED 06:36 → M ED INP 14:50 → M PED 17:50
PROVIDERS: ADMIT Internal Medicine Nephrology; ATTEND Internal Medicine Nephrology
PROC: 8E0W4CZ Robotic Assisted Procedure of Trunk Region, Percutaneous Endoscopic Approach (ICD-10-PCS; 2024-10-06)
PROC: 0FT44ZZ Resection of Gallbladder, Percutaneous Endoscopic Approach (ICD-10-PCS; principal; 2024-10-06 18:50)
DX: K81.0 Acute cholecystitis (principal); K59.00 Constipation, unspecified; F90.9 Attention-deficit hyperactivity disorder, unspecified type; Z79.899 Other long term (current) drug therapy